=== PATIENT | female | born 1955 | race Caucasian/White ===

== ENCOUNTER 2021-05-15 10:27 | Emergency (ER) | payer MEDICARE ==
[~2021-05-15] VITALS: Ht 157.5 cm; Wt 63.0 kg
[~2021-05-15 10:27] MED LIST: NORCO 5-325 TA1 EACH PO; ZOFRAN ODT 4 MG4 MG SL
== END 2021-05-15 13:45 | disposition home or self-care (01) ==
LOC: ER1 10:27
DX: U07.1 COVID-19 (principal); Z23 Encounter for immunization; E78.5 Hyperlipidemia, unspecified; I51.9 Heart disease, unspecified; Z90.89 Acquired absence of other organs; Z88.6 Allergy status to analgesic agent
CPT/HCPCS: 99283; M0243